=== PATIENT | female | born 1930 | race African-American/Black ===

== ENCOUNTER 2018-12-19 18:14 | Inpatient (IN) ==
[2018-12-19] MEDS ORDERED: ALBUTEROL/IPRATROPIUM 3 ML NEB RESP TX STA (18:39)
[2018-12-19] MEDS ORDERED: VANCOMYCIN INJ 1,000 MG in SODIUM CHLORIDE 0.9% 250 ML IV STA (18:39)
[2018-12-19 19:36] LABS: Alanine Aminotransferase 12 U/L (13-56); Albumin 2.9 G/DL (3.4-5.0); Alkaline Phosphatase 91 U/L (45-117); Aspartate Amino Transferase 18 U/L (0-37); Bilirubin,Total < 0.39 MG/DL (0.2-1.0); Blood Urea Nitrogen 23 MG/DL (7-18); Calcium 8.7 MG/DL (8.5-10.1); Glucose 102 MG/DL (74-106); Osmolality,Calculated 260.1 MOS/KG (273-304); Potassium 3.9 MMOL/L (3.5-5.1); Sodium 128 MMOL/L (136-145); Total Protein 7.1 G/DL (6.4-8.3); Troponin I < 0.015 NG/ML (0.00-0.045)
[2018-12-19 20:07] LABS: Basophils % 0.1 % (0.0-0.8); Eosinophils # 0.2 10*3/uL (0.0-0.87); Eosinophils % 3.2 % (0.00-10.9); Hematocrit 27.1 VOL% (35.7-47.0); Hemoglobin 8.8 GM/DL (12.0-16.0); Immature Granulocytes % 0.4 %; Immature Granulocytes Absolute 0.03 #; Lymphocytes # 1.9 10*3/uL (1.4-4.0); Lymphocytes % 27.7 % (21.3-54.2); Mean Corpuscular HGB Conc 32.5 GM/DL (32-36); Mean Corpuscular Hemoglobin 30 PG (27-34); Mean Corpuscular Volume 91.9 FL (87-102); Mean Platelet Volume 9.8 FL (9.6-12.0); Monocytes # 0.7 10*3/uL (0.11-0.8); Monocytes % 10.2 % (1.7-12.7); Neutrophils # 4.1 10*3/uL (1.4-7.4); Neutrophils % 58.4 % (38.7-73.9); Platelet Count 304 T/CUMM (130-400); Red Blood Count 2.95 MC/CUMM (3.8-5.5); Red Cell Distribution Width 13.2 % (9.3-17.3)
[2018-12-19 20:16] LABS: INR 1.4; PT Patient Result 15.2 SECS
[2018-12-19] MEDS ORDERED: GLUCAGON 1 MG VIAL IM PRN (21:16)
[2018-12-19] MEDS ORDERED: guaiFENesin/DM ER 600-30 MG TABLET PO PRN (21:16)
[2018-12-19] MEDS ORDERED: ZALEPLON 5 MG CAPSULE PO PRN (21:16)
[2018-12-19] MEDS ORDERED: ONDANSETRON 4 MG/2 ML VIAL IV PRN (21:16)
[2018-12-19] MEDS ORDERED: DEXTROSE 50% 25 GM/50 ML SYRINGE IV PRN (21:16)
[2018-12-19] MEDS ORDERED: NICOTINE 21 MG/24 HR PATCH TRANSDERM PRN (21:16)
[2018-12-19] MEDS ORDERED: diphenhydrAMINE CAP 25 MG CAPSULE PO PRN (21:16)
[2018-12-19] MEDS ORDERED: ACETAMINOPHEN 325 MG TABLET PO PRN (21:16)
[2018-12-19] MEDS ORDERED: BISACODYL 5 MG TABLET PO PRN (21:16)
[2018-12-19] MEDS ORDERED: hydrALAZINE 20 MG/1 ML VIAL IV PRN (21:20)
[2018-12-19 21:23] LABS: Sedimentation Rate-Westergren 124 MM/HR (0-30)
[2018-12-19] MEDS ORDERED: TOLVAPTAN 15 MG TABLET PO ONE (23:00)
[2018-12-19] MEDS: MORPHINE 4 MG/1 ML VIAL IV PRN (23:54)
[2018-12-20] MEDS: ALBUTEROL/IPRATROPIUM 3 ML NEB RESP TX SCH ×7 (00:17→23:59)
[2018-12-20 02:21] LABS: Apearance,Urine Clear (Clear); Bilirubin,Urine Negative (Negative); Blood, Urine Negative (Negative); Glucose,Urine (UA) Negative (Negative); Ketones,Urine Negative (Negative); Nitrite,Urine Negative (Negative); Protein,Urine Negative; Urine Color Yellow (Yellow); Urine Urobilinogen 0.2 EU/DL (0.2-1.0)
[2018-12-20 02:22] LABS: RBC,Urine 3 /HPF (0-4); Squamous Epithelial Cell,Urine Occasional /HPF (0-10); WBC,Urine 1 /HPF (0-6)
[2018-12-20 04:54] LABS: Basophils % 0.1 % (0.0-0.8); Eosinophils # 0.2 10*3/uL (0.0-0.87); Eosinophils % 2.9 % (0.00-10.9); Hematocrit 24.7 VOL% (35.7-47.0); Immature Granulocytes % 0.4 %; Immature Granulocytes Absolute 0.03 #; Lymphocytes # 2.4 10*3/uL (1.4-4.0); Lymphocytes % 35.3 % (21.3-54.2); Mean Corpuscular HGB Conc 32.4 GM/DL (32-36); Mean Corpuscular Hemoglobin 30 PG (27-34); Mean Corpuscular Volume 91.1 FL (87-102); Mean Platelet Volume 9.4 FL (9.6-12.0); Monocytes # 0.7 10*3/uL (0.11-0.8); Monocytes % 10.1 % (1.7-12.7); Neutrophils # 3.5 10*3/uL (1.4-7.4); Neutrophils % 51.2 % (38.7-73.9); Platelet Count 284 T/CUMM (130-400); Red Blood Count 2.71 MC/CUMM (3.8-5.5); Red Cell Distribution Width 13.1 % (9.3-17.3); White Blood Count 6.9 T/CUMM (4-12)
[2018-12-20] MEDS: INSULIN REGULAR 100 UNIT/ML SUBCUT SCH ×4 (07:43→22:20)
[2018-12-20] MEDS ORDERED: DEXAMETHASONE BOTH EYES SCH (09:00)
[2018-12-20] MEDS ORDERED: POLYMYXIN B BOTH EYES SCH (09:00)
[2018-12-20] MEDS ORDERED: CHLORTHALIDONE 25 MG TABLET PO SCH (09:00)
[2018-12-20] MEDS ORDERED: LATANOPROST BOTH EYES SCH (09:00)
[2018-12-20] MEDS ORDERED: NEOMYCIN BOTH EYES SCH (09:00)
[2018-12-20] MEDS: CHOLECALCIFEROL 1,000 UNIT TABLET PO SCH ×2 (09:44→17:25)
[2018-12-20] MEDS: POTASSIUM CHLORIDE 20 MEQ/15 ML UDCUP PO SCH ×3 (09:45→22:19)
[2018-12-20] MEDS: POLYETHYLENE GLYCOL POWDER 17 GM PACK PO SCH ×2 (09:45→13:19)
[2018-12-20] MEDS: ALBUTEROL 2 MG TABLET PO SCH ×3 (09:45→22:20)
[2018-12-20] MEDS: PANTOPRAZOLE 40 MG TABLET PO SCH ×2 (09:45→13:23)
[2018-12-20] MEDS: levETIRAcetam LIQUID 100 MG/ML 30 ML/BOTTLE PO SCH ×2 (09:45→22:21)
[2018-12-20] MEDS: OXcarbazepine 300 MG TABLET PO SCH ×3 (09:45→22:21)
[2018-12-20] MEDS: amLODIPine 10 MG TABLET PO SCH (09:59)
[2018-12-20] MEDS: LOSARTAN 50 MG TABLET PO SCH (10:00)
[2018-12-20] MEDS: FUROSEMIDE 20 MG/2 ML VIAL IV SCH (10:01)
[2018-12-20] MEDS: CARVEDILOL 25 MG TABLET PO SCH ×2 (10:01→22:20)
[2018-12-20] MEDS: MORPHINE 4 MG/1 ML VIAL IV PRN (10:07)
[2018-12-20] MEDS: LEVOFLOXACIN INJ 500 MG in PREMIX 1 EACH IV SCH (12:44)
[2018-12-20] MEDS: DULoxetine 30 MG CAPSULE PO SCH (13:23)
[2018-12-20] MEDS ORDERED: WARFARIN 5 MG TABLET PO SCH (18:00)
[2018-12-20] MEDS ORDERED: SKIN HEALING OINT (AQUAPHOR) 50 GM TUBE TOP PRN (18:43)
[2018-12-20] MEDS: VANCOMYCIN INJ 1,000 MG in SODIUM CHLORIDE 0.9% 250 ML IV SCH (22:18)
[2018-12-20] MEDS: DONEPEZIL 10 MG TABLET PO SCH (22:20)
[2018-12-20] MEDS: LORazepam 0.5 MG TABLET PO SCH (22:20)
[2018-12-20] MEDS: MORPHINE ER 15 MG TABLET PO SCH (22:20)
[2018-12-21] MEDS: ALBUTEROL/IPRATROPIUM 3 ML NEB RESP TX SCH ×6 (03:34→22:32)
[2018-12-21 05:10] LABS: Basophils % 0.1 % (0.0-0.8); Eosinophils # 0.2 10*3/uL (0.0-0.87); Eosinophils % 2.3 % (0.00-10.9); Hematocrit 24.1 VOL% (35.7-47.0); Hemoglobin 7.8 GM/DL (12.0-16.0); Immature Granulocytes % 0.4 %; Immature Granulocytes Absolute 0.03 #; Lymphocytes # 2.1 10*3/uL (1.4-4.0); Mean Corpuscular HGB Conc 32.4 GM/DL (32-36); Mean Corpuscular Hemoglobin 30 PG (27-34); Mean Platelet Volume 9.1 FL (9.6-12.0); Monocytes # 0.8 10*3/uL (0.11-0.8); Monocytes % 10.3 % (1.7-12.7); Neutrophils # 4.4 10*3/uL (1.4-7.4); Neutrophils % 58.9 % (38.7-73.9); Platelet Count 278 T/CUMM (130-400); Red Blood Count 2.62 MC/CUMM (3.8-5.5); Red Cell Distribution Width 13.4 % (9.3-17.3); White Blood Count 7.5 T/CUMM (4-12)
[2018-12-21 05:25] LABS: Calcium 8.4 MG/DL (8.5-10.1); Osmolality,Calculated 269.4 MOS/KG (273-304); Potassium 4.1 MMOL/L (3.5-5.1)
[2018-12-21 05:45] LABS: INR 1.3; PT Patient Result 13.9 SECS
[2018-12-21] MEDS: INSULIN REGULAR 100 UNIT/ML SUBCUT SCH ×3 (08:19→15:43)
[2018-12-21] MEDS ORDERED: SODIUM CHLORIDE 0.9% 1,000 ML IV PRN (09:43)
[2018-12-21] MEDS: ALBUTEROL 2 MG TABLET PO SCH ×2 (10:10→21:04)
[2018-12-21] MEDS: MORPHINE ER 15 MG TABLET PO SCH ×2 (10:10→21:05)
[2018-12-21] MEDS: DULoxetine 30 MG CAPSULE PO SCH (10:10)
[2018-12-21] MEDS: LOSARTAN 50 MG TABLET PO SCH (10:10)
[2018-12-21] MEDS: CHOLECALCIFEROL 1,000 UNIT TABLET PO SCH ×2 (10:10→16:51)
[2018-12-21] MEDS: PANTOPRAZOLE 40 MG TABLET PO SCH (10:10)
[2018-12-21] MEDS: CARVEDILOL 25 MG TABLET PO SCH ×2 (10:10→21:04)
[2018-12-21] MEDS: amLODIPine 10 MG TABLET PO SCH (10:11)
[2018-12-21] MEDS: POLYETHYLENE GLYCOL POWDER 17 GM PACK PO SCH (10:11)
[2018-12-21] MEDS: OXcarbazepine 300 MG TABLET PO SCH ×2 (10:11→21:04)
[2018-12-21] MEDS: POTASSIUM CHLORIDE 20 MEQ/15 ML UDCUP PO SCH ×2 (10:11→21:03)
[2018-12-21] MEDS: FUROSEMIDE 20 MG/2 ML VIAL IV SCH (10:11)
[2018-12-21] MEDS: levETIRAcetam LIQUID 100 MG/ML 30 ML/BOTTLE PO SCH ×2 (10:12→21:03)
[2018-12-21] MEDS: DOCUSATE SODIUM 100 MG CAPSULE PO SCH ×2 (13:33→21:04)
[2018-12-21 14:21] LABS: Hematocrit 27.7 VOL% (35.7-47.0)
[2018-12-21] MEDS ORDERED: WARFARIN 2.5 MG TABLET PO SCH (18:00)
[2018-12-21] MEDS: VANCOMYCIN INJ 1,000 MG in SODIUM CHLORIDE 0.9% 250 ML IV SCH (21:02)
[2018-12-21] MEDS: DONEPEZIL 10 MG TABLET PO SCH (21:04)
[2018-12-21] MEDS: LORazepam 0.5 MG TABLET PO SCH (21:04)
[2018-12-22] MEDS: INSULIN REGULAR 100 UNIT/ML SUBCUT SCH ×4 (01:33→15:37)
[2018-12-22] MEDS: ALBUTEROL/IPRATROPIUM 3 ML NEB RESP TX SCH ×4 (02:29→14:45)
[2018-12-22 04:49] LABS: Basophils % 0.1 % (0.0-0.8); Eosinophils # 0.2 10*3/uL (0.0-0.87); Hematocrit 28.2 VOL% (35.7-47.0); Immature Granulocytes % 0.6 %; Immature Granulocytes Absolute 0.05 #; Lymphocytes % 25.8 % (21.3-54.2); Mean Corpuscular HGB Conc 31.9 GM/DL (32-36); Mean Corpuscular Hemoglobin 30 PG (27-34); Mean Corpuscular Volume 93.1 FL (87-102); Mean Platelet Volume 8.7 FL (9.6-12.0); Monocytes # 0.9 10*3/uL (0.11-0.8); Neutrophils # 4.6 10*3/uL (1.4-7.4); Neutrophils % 59.5 % (38.7-73.9); Platelet Count 282 T/CUMM (130-400); Red Blood Count 3.03 MC/CUMM (3.8-5.5); Red Cell Distribution Width 13.7 % (9.3-17.3); White Blood Count 7.8 T/CUMM (4-12)
[2018-12-22 04:51] LABS: Basophils % 0.2 % (0.0-0.8); Eosinophils # 0.2 10*3/uL (0.0-0.87); Eosinophils % 2.6 % (0.00-10.9); Hematocrit 28.8 VOL% (35.7-47.0); Hemoglobin 9.1 GM/DL (12.0-16.0); Immature Granulocytes % 0.4 %; Immature Granulocytes Absolute 0.03 #; Lymphocytes # 2.3 10*3/uL (1.4-4.0); Lymphocytes % 27.9 % (21.3-54.2); Mean Corpuscular HGB Conc 31.6 GM/DL (32-36); Mean Corpuscular Hemoglobin 29 PG (27-34); Mean Corpuscular Volume 92.9 FL (87-102); Monocytes # 0.9 10*3/uL (0.11-0.8); Monocytes % 10.8 % (1.7-12.7); Neutrophils # 4.7 10*3/uL (1.4-7.4); Neutrophils % 58.1 % (38.7-73.9); Platelet Count 303 T/CUMM (130-400); Red Cell Distribution Width 13.5 % (9.3-17.3); White Blood Count 8.2 T/CUMM (4-12)
[2018-12-22 04:56] LABS: INR 1.4; PT Patient Result 15.6 SECS
[2018-12-22 05:15] LABS: Calcium 8.4 MG/DL (8.5-10.1); Osmolality,Calculated 275.1 MOS/KG (273-304); Potassium 4.8 MMOL/L (3.5-5.1)
[2018-12-22 05:20] LABS: % Iron Saturation 15.6 % (18-50); Ferritin 297.5 ng/ml (8-252)
[2018-12-22 05:28] LABS: Folate > 24.0 NG/ML (5.4-24.0); Vitamin B12 1021 PG/ML (211-911)
[2018-12-22 05:54] LABS: Sedimentation Rate-Westergren 112 MM/HR (0-30)
[2018-12-22] MEDS: LEVOFLOXACIN INJ 500 MG in PREMIX 1 EACH IV SCH (09:45)
[2018-12-22] MEDS: amLODIPine 10 MG TABLET PO SCH (09:46)
[2018-12-22] MEDS: DULoxetine 30 MG CAPSULE PO SCH (09:46)
[2018-12-22] MEDS: POLYETHYLENE GLYCOL POWDER 17 GM PACK PO SCH (09:46)
[2018-12-22] MEDS: POTASSIUM CHLORIDE 20 MEQ/15 ML UDCUP PO SCH (09:46)
[2018-12-22] MEDS: FUROSEMIDE 20 MG/2 ML VIAL IV SCH (09:46)
[2018-12-22] MEDS: CHOLECALCIFEROL 1,000 UNIT TABLET PO SCH (09:46)
[2018-12-22] MEDS: OXcarbazepine 300 MG TABLET PO SCH (09:47)
[2018-12-22] MEDS: PANTOPRAZOLE 40 MG TABLET PO SCH (09:47)
[2018-12-22] MEDS: MORPHINE ER 15 MG TABLET PO SCH (09:47)
[2018-12-22] MEDS: CARVEDILOL 25 MG TABLET PO SCH (09:47)
[2018-12-22] MEDS: ALBUTEROL 2 MG TABLET PO SCH (09:47)
[2018-12-22] MEDS: LOSARTAN 50 MG TABLET PO SCH (09:47)
[2018-12-22] MEDS: DOCUSATE SODIUM 100 MG CAPSULE PO SCH (09:47)
[2018-12-22] MEDS: levETIRAcetam LIQUID 100 MG/ML 30 ML/BOTTLE PO SCH (09:47)
[2018-12-22 17:19] VITALS: BP 156/66
[2018-12-22] MEDS ORDERED: DOXYCYCLINE HYCLATE 100 MG CAPSULE PO SCH (21:00)
== END 2018-12-22 18:15 | disposition home health service (06) | DRG 637 ==
LOC: EDUNIT# → EDBD → N.ED 18:14 → N.EDINP 20:24 → SUATTDRO 20:24 → N.2E 22:08
PROVIDERS: ADMIT Internal Medicine; ATTEND Internal Medicine